=== PATIENT | male | born 1945 | race Asian ===

== ENCOUNTER 2016-02-05 10:01 | Inpatient (IN) | payer OTHER ==
[~2016-02-05 10:01] MED LIST: ASCO500T18 PO; CLOP75TA2 PO; CYAN10009 IM; DOCU100C10 PO; DONE5TAB PO; EQ ASPIRIN325 MG PO; IRON325 MG PO; METO50TA27 PO; MULTI VITAMN PO; NAMENDA XR28 MG PO; NITROSTAT0.4 MG SL; PRAVACHOL80 MG PO; PROTEINEX PO; RISP1TAB PO; SENNA-S1 TAB PO; SPIR25TA66 PO; TRAM50TA PO; TYLENOL325 MG PO; VITAMIN D400 UNI1 PO; ZANTAC300 MG PO
== END 2016-03-07 08:00 | disposition still patient (30) ==
LOC: PAVC 10:01
PROVIDERS: ADMIT Internal Medicine
DX: Z51.89 Encounter for other specified aftercare (principal)

== ENCOUNTER 2016-03-07 09:00 | Inpatient (IN) | payer OTHER | END 2016-04-07 13:11 | disposition still patient (30) | LOC: PAVC 09:00 | PROVIDERS: ADMIT Internal Medicine | DX: Z51.89 Encounter for other specified aftercare (principal) ==

== ENCOUNTER 2016-04-07 13:20 | Inpatient (IN) | payer OTHER | END 2016-05-05 13:24 | disposition still patient (30) | LOC: PAVC 13:20 | PROVIDERS: ADMIT Internal Medicine | DX: Z51.89 Encounter for other specified aftercare (principal) ==

== ENCOUNTER 2016-04-14 22:41 | Emergency (ER) | payer OTHER ==
[~2016-04-14] VITALS: Ht 185.4 cm; Wt 93.0 kg
[2016-04-14 22:51] VITALS: BP 101/56; TEMP 98.6
== END 2016-04-14 23:00 | disposition home or self-care (01) ==
LOC: ED 22:41
DX: S00.83XA Contusion of other part of head, initial encounter (principal); W07.XXXA Fall from chair, initial encounter; Y92.128 Other place in nursing home as the place of occurrence of the external cause
CPT/HCPCS: 99281

== ENCOUNTER 2016-04-14 23:12 | Outpatient (CLI) | payer OTHER | END 2016-04-14 23:55 | disposition home or self-care (01) | LOC: RAD 23:12 | DX: S00.83XA Contusion of other part of head, initial encounter (principal) ==

== ENCOUNTER 2016-05-05 13:55 | Inpatient (IN) | payer OTHER | END 2016-06-05 08:16 | disposition still patient (30) | LOC: PAVC 13:55 | PROVIDERS: ADMIT Internal Medicine | DX: Z51.89 Encounter for other specified aftercare (principal) ==

== ENCOUNTER 2016-06-05 08:26 | Inpatient (IN) | payer OTHER | END 2016-07-05 11:01 | disposition still patient (30) | LOC: PAVC 08:26 | PROVIDERS: ADMIT Internal Medicine | DX: Z51.89 Encounter for other specified aftercare (principal) ==

== ENCOUNTER 2016-06-11 02:58 | Outpatient (CLI) | payer OTHER ==
[2016-06-11 04:08] LABS: PLATELET COUNT 172 K/uL (142-355)
[2016-06-11 04:24] LABS: POTASSIUM 3.7 mmol/L (3.6-5.2)
== END 2016-06-11 19:04 | disposition home or self-care (01) ==
LOC: LAB 02:58
PROVIDERS: Internal Medicine
DX: I10 Essential (primary) hypertension (principal); K21.9 Gastro-esophageal reflux disease without esophagitis; D64.89 Other specified anemias; R79.89 Other specified abnormal findings of blood chemistry
CPT/HCPCS: 80053; 82607; 83540; 85027

== ENCOUNTER 2016-07-02 15:25 | Outpatient (CLI) | payer OTHER | END 2016-07-02 19:13 | disposition home or self-care (01) | LOC: LAB 15:25 | DX: Z16.24 Resistance to multiple antibiotics (principal) | CPT/HCPCS: 87081 ==

== ENCOUNTER 2016-07-05 11:10 | Inpatient (IN) | payer OTHER | END 2016-08-05 11:13 | disposition still patient (30) | LOC: PAVC 11:10 | PROVIDERS: ADMIT Internal Medicine | DX: Z51.89 Encounter for other specified aftercare (principal) ==

== ENCOUNTER 2016-07-21 03:32 | Outpatient (CLI) | payer OTHER | END 2016-07-21 19:23 | disposition home or self-care (01) | LOC: LAB 03:32 | DX: E55.9 Vitamin D deficiency, unspecified (principal) | CPT/HCPCS: 36415; 82306; 82310 ==

== ENCOUNTER 2016-08-05 11:21 | Inpatient (IN) | payer OTHER | END 2016-09-04 16:13 | disposition still patient (30) | LOC: PAVC 11:21 | PROVIDERS: ADMIT Internal Medicine | DX: Z51.89 Encounter for other specified aftercare (principal) ==

== ENCOUNTER 2016-09-04 16:13 | Inpatient (IN) | payer OTHER | END 2016-10-05 13:04 | disposition still patient (30) | LOC: PAVC 16:13 | PROVIDERS: ADMIT Internal Medicine | DX: Z51.89 Encounter for other specified aftercare (principal) ==

== ENCOUNTER 2016-09-06 03:22 | Outpatient (CLI) | payer OTHER ==
[2016-09-06 04:24] LABS: POTASSIUM 3.6 mmol/L (3.6-5.2)
== END 2016-09-06 04:25 | disposition home or self-care (01) ==
LOC: LAB 03:22
PROVIDERS: Internal Medicine
DX: I63.50 Cerebral infarction due to unspecified occlusion or stenosis of unspecified cerebral artery (principal); F02.81 Dementia in other diseases classified elsewhere, unspecified severity, with behavioral disturbance; I10 Essential (primary) hypertension
CPT/HCPCS: 36415; 80048

== ENCOUNTER 2016-10-04 04:13 | Outpatient (CLI) | payer OTHER | END 2016-10-04 05:15 | disposition home or self-care (01) | LOC: LAB 04:13 | PROVIDERS: Internal Medicine | DX: E78.4 Other hyperlipidemia (principal) | CPT/HCPCS: 36415; 80061 ==

== ENCOUNTER 2016-10-05 14:29 | Inpatient (IN) | payer OTHER | END 2016-11-05 10:03 | disposition still patient (30) | LOC: PAVC 14:29 | PROVIDERS: ADMIT Internal Medicine | DX: Z51.89 Encounter for other specified aftercare (principal) ==

== ENCOUNTER 2016-11-05 10:09 | Inpatient (IN) | payer OTHER | END 2016-12-05 09:40 | disposition still patient (30) | LOC: PAVC 10:09 | PROVIDERS: ADMIT Internal Medicine | DX: Z51.89 Encounter for other specified aftercare (principal) ==

== ENCOUNTER 2016-12-05 09:47 | Inpatient (IN) | payer OTHER | END 2017-01-05 14:23 | disposition still patient (30) | LOC: PAVC 09:47 | PROVIDERS: ADMIT Internal Medicine ==

== ENCOUNTER 2016-12-17 04:24 | Outpatient (CLI) | payer OTHER ==
[2016-12-17 05:48] LABS: PLATELET COUNT 158 K/uL (142-355)
[2016-12-17 06:02] LABS: POTASSIUM 3.9 mmol/L (3.6-5.2)
== END 2016-12-17 05:25 | disposition home or self-care (01) ==
LOC: LAB 04:24
PROVIDERS: Internal Medicine
DX: I10 Essential (primary) hypertension (principal); D64.9 Anemia, unspecified
CPT/HCPCS: 80053; 82607; 83540; 85027

== ENCOUNTER 2017-01-05 15:32 | Inpatient (IN) | payer OTHER | END 2017-02-04 10:34 | disposition still patient (30) | LOC: PAVC 15:32 | PROVIDERS: ADMIT Internal Medicine ==

== ENCOUNTER 2017-02-04 11:12 | Inpatient (IN) | payer OTHER | END 2017-03-07 11:19 | disposition still patient (30) | LOC: PAVC 11:12 | PROVIDERS: ADMIT Internal Medicine ==

== ENCOUNTER 2017-03-07 11:29 | Inpatient (IN) | payer OTHER | END 2017-04-07 11:16 | disposition still patient (30) | LOC: PAVC 11:29 | PROVIDERS: ADMIT Internal Medicine ==

== ENCOUNTER 2017-03-11 01:32 | Outpatient (CLI) | payer OTHER ==
[2017-03-11 04:16] LABS: POTASSIUM 4.1 mmol/L (3.6-5.2)
== END 2017-03-12 05:15 | disposition home or self-care (01) ==
LOC: LAB 01:32
PROVIDERS: Internal Medicine
DX: I63.50 Cerebral infarction due to unspecified occlusion or stenosis of unspecified cerebral artery (principal); I10 Essential (primary) hypertension; F02.81 Dementia in other diseases classified elsewhere, unspecified severity, with behavioral disturbance
CPT/HCPCS: 80048

== ENCOUNTER 2017-04-07 11:17 | Inpatient (IN) | payer OTHER | END 2017-05-05 10:42 | disposition still patient (30) | LOC: PAVC 11:17 | PROVIDERS: ADMIT Internal Medicine ==

== ENCOUNTER 2017-05-05 11:15 | Inpatient (IN) | payer OTHER | END 2017-06-05 08:00 | disposition still patient (30) | LOC: PAVC 11:15 | PROVIDERS: ADMIT Internal Medicine ==

== ENCOUNTER 2017-06-05 09:00 | Inpatient (IN) | payer OTHER | END 2017-07-05 10:35 | disposition still patient (30) | LOC: PAVC 09:00 | PROVIDERS: ADMIT Internal Medicine ==

== ENCOUNTER 2017-06-08 04:49 | Outpatient (CLI) | payer OTHER ==
[2017-06-08 05:26] LABS: PLATELET COUNT 134 K/uL (142-355)
[2017-06-08 05:49] LABS: POTASSIUM 3.6 mmol/L (3.6-5.2)
== END 2017-06-08 22:24 | disposition home or self-care (01) ==
LOC: LAB 04:49
PROVIDERS: Internal Medicine
DX: D64.89 Other specified anemias (principal); E55.9 Vitamin D deficiency, unspecified
CPT/HCPCS: 80053; 82306; 82607; 85027

== ENCOUNTER 2017-07-05 11:11 | Inpatient (IN) | payer OTHER | END 2017-08-05 10:28 | disposition still patient (30) | LOC: PAVC 11:11 | PROVIDERS: ADMIT Internal Medicine ==

== ENCOUNTER 2017-08-05 10:35 | Inpatient (IN) | payer OTHER | END 2017-09-04 15:08 | disposition still patient (30) | LOC: PAVC 10:35 | PROVIDERS: ADMIT Internal Medicine ==

== ENCOUNTER 2017-09-04 15:16 | Inpatient (IN) | payer OTHER | END 2017-10-05 08:00 | disposition still patient (30) | LOC: PAVC 15:16 | PROVIDERS: ADMIT Internal Medicine ==

== ENCOUNTER 2017-09-09 06:05 | Outpatient (CLI) | payer OTHER ==
[2017-09-09 08:01] LABS: POTASSIUM 3.7 mmol/L (3.6-5.2)
== END 2017-09-09 19:03 | disposition home or self-care (01) ==
LOC: LAB 06:05
PROVIDERS: Internal Medicine
DX: R79.89 Other specified abnormal findings of blood chemistry (principal)
CPT/HCPCS: 80048

== ENCOUNTER 2017-10-05 09:00 | Inpatient (IN) | payer OTHER | END 2017-11-05 11:15 | disposition still patient (30) | LOC: PAVC 09:00 | PROVIDERS: ADMIT Internal Medicine ==

== ENCOUNTER 2017-11-05 11:15 | Inpatient (IN) | payer OTHER | END 2017-12-05 15:08 | disposition still patient (30) | LOC: PAVC 11:15 | PROVIDERS: ADMIT Internal Medicine ==

== ENCOUNTER 2017-12-05 16:21 | Inpatient (IN) | payer OTHER | END 2018-01-05 10:43 | disposition still patient (30) | LOC: PAVC 16:21 | PROVIDERS: ADMIT Internal Medicine ==

== ENCOUNTER 2017-12-13 03:29 | Outpatient (CLI) | payer OTHER ==
[2017-12-13 04:20] LABS: PLATELET COUNT 126 K/uL (142-355)
[2017-12-13 04:26] LABS: POTASSIUM 3.7 mmol/L (3.6-5.2)
== END 2017-12-13 22:36 | disposition home or self-care (01) ==
LOC: LAB 03:29
PROVIDERS: Internal Medicine
DX: D64.9 Anemia, unspecified (principal); D51.9 Vitamin B12 deficiency anemia, unspecified; I69.351 Hemiplegia and hemiparesis following cerebral infarction affecting right dominant side
CPT/HCPCS: 80053; 82607; 83540; 85027

== ENCOUNTER 2018-01-05 10:56 | Inpatient (IN) | payer OTHER | END 2018-02-04 07:09 | disposition still patient (30) | LOC: PAVC 10:56 | PROVIDERS: ADMIT Internal Medicine ==

== ENCOUNTER 2018-02-04 07:10 | Inpatient (IN) | payer OTHER | END 2018-03-07 09:41 | disposition still patient (30) | LOC: PAVC 07:10 | PROVIDERS: ADMIT Internal Medicine ==

== ENCOUNTER → 2018-03-06 | Outpatient (CLI) | payer OTHER | END | disposition home or self-care (01) | LOC: RAD 20:49 | DX: S09.90XA Unspecified injury of head, initial encounter (principal); W19.XXXA Unspecified fall, initial encounter ==

== ENCOUNTER 2018-03-07 10:17 | Inpatient (IN) | payer OTHER | END 2018-04-07 08:42 | disposition still patient (30) | LOC: PAVC 10:17 | PROVIDERS: ADMIT Internal Medicine ==

== ENCOUNTER 2018-04-07 09:32 | Inpatient (IN) | payer OTHER | END 2018-05-05 13:54 | disposition still patient (30) | LOC: PAVC 09:32 | PROVIDERS: ADMIT Internal Medicine ==

== ENCOUNTER 2018-05-05 14:10 | Inpatient (IN) | payer OTHER | END 2018-06-05 13:06 | disposition still patient (30) | LOC: PAVC 14:10 | PROVIDERS: ADMIT Internal Medicine ==

== ENCOUNTER 2018-06-05 13:15 | Inpatient (IN) | payer OTHER | END 2018-07-05 15:57 | disposition still patient (30) | LOC: PAVC 13:15 | PROVIDERS: ADMIT Internal Medicine ==

== ENCOUNTER 2018-06-12 04:09 | Outpatient (CLI) | payer OTHER ==
[2018-06-12 05:15] LABS: PLATELET COUNT 151 K/uL (142-355)
[2018-06-12 05:39] LABS: POTASSIUM 3.6 mmol/L (3.6-5.2)
== END 2018-06-12 22:52 | disposition home or self-care (01) ==
LOC: LAB 04:09
PROVIDERS: Internal Medicine
DX: I49.9 Cardiac arrhythmia, unspecified (principal); F03.90 Unspecified dementia, unspecified severity, without behavioral disturbance, psychotic disturbance, mood disturbance, and anxiety
CPT/HCPCS: 36415; 80053; 82306; 82607; 85027

== ENCOUNTER 2018-06-19 21:07 | Outpatient (CLI) | payer OTHER | END 2018-06-19 23:00 | disposition home or self-care (01) | LOC: LAB 21:07 | DX: Z12.5 Encounter for screening for malignant neoplasm of prostate (principal) | CPT/HCPCS: 36415; 84153 ==

== ENCOUNTER 2018-07-05 16:41 | Inpatient (IN) | payer OTHER | END 2018-08-05 09:43 | disposition still patient (30) | LOC: PAVC 16:41 | PROVIDERS: ADMIT Internal Medicine | DX: Z51.89 Encounter for other specified aftercare (principal) ==

== ENCOUNTER 2018-08-05 09:44 | Inpatient (IN) | payer OTHER | END 2018-09-04 13:51 | disposition still patient (30) | LOC: PAVC 09:44 | PROVIDERS: ADMIT Internal Medicine ==

== ENCOUNTER 2018-09-04 14:09 | Inpatient (IN) | payer OTHER | END 2018-10-05 12:35 | disposition still patient (30) | LOC: PAVC 14:09 | PROVIDERS: ADMIT Internal Medicine ==

== ENCOUNTER 2018-09-12 04:11 | Outpatient (CLI) | payer OTHER ==
[2018-09-12 06:51] LABS: POTASSIUM 3.4 mmol/L (3.6-5.2)
== END 2018-09-12 19:57 | disposition home or self-care (01) ==
LOC: LAB 04:11
PROVIDERS: Internal Medicine
DX: R79.89 Other specified abnormal findings of blood chemistry (principal); E78.49 Other hyperlipidemia
CPT/HCPCS: 36415; 80048; 80061

== ENCOUNTER 2018-10-05 12:54 | Inpatient (IN) | payer OTHER | END 2018-11-05 17:20 | disposition still patient (30) | LOC: PAVC 12:54 | PROVIDERS: ADMIT Internal Medicine ==

== ENCOUNTER 2018-11-05 17:28 | Inpatient (IN) | payer OTHER | END 2018-12-05 13:01 | disposition still patient (30) | LOC: PAVC 17:28 | PROVIDERS: ADMIT Internal Medicine ==

== ENCOUNTER 2018-12-05 13:15 | Inpatient (IN) | payer OTHER | END 2019-01-05 12:20 | disposition still patient (30) | LOC: PAVC 13:15 | PROVIDERS: ADMIT Internal Medicine ==

== ENCOUNTER 2018-12-11 05:52 | Outpatient (CLI) | payer OTHER ==
[2018-12-11 06:24] LABS: PLATELET COUNT 145 K/uL (142-355); POTASSIUM 3.8 mmol/L (3.6-5.2)
== END 2018-12-11 22:15 | disposition home or self-care (01) ==
LOC: LAB 05:52
PROVIDERS: Internal Medicine
DX: E55.9 Vitamin D deficiency, unspecified (principal); D51.8 Other vitamin B12 deficiency anemias; R68.89 Other general symptoms and signs; R79.89 Other specified abnormal findings of blood chemistry
CPT/HCPCS: 80053; 82306; 82607; 83540; 85027

== ENCOUNTER 2019-01-05 14:03 | Inpatient (IN) | payer OTHER | END 2019-02-04 08:00 | disposition still patient (30) | LOC: PAVC 14:03 | PROVIDERS: ADMIT Internal Medicine ==

== ENCOUNTER 2019-02-04 11:00 | Inpatient (IN) | payer OTHER | END 2019-03-07 09:33 | disposition still patient (30) | LOC: PAVC 11:00 | PROVIDERS: ADMIT Internal Medicine ==

== ENCOUNTER 2019-03-07 09:42 | Inpatient (IN) | payer OTHER | END 2019-04-07 10:48 | disposition still patient (30) | LOC: PAVC 09:42 | PROVIDERS: ADMIT Internal Medicine ==

== ENCOUNTER 2019-03-12 05:29 | Outpatient (CLI) | payer OTHER ==
[2019-03-12 06:17] LABS: POTASSIUM 3.6 mmol/L (3.6-5.2)
== END 2019-03-12 22:30 | disposition home or self-care (01) ==
LOC: LAB 05:29
PROVIDERS: Internal Medicine
DX: N18.9 Chronic kidney disease, unspecified (principal); E78.49 Other hyperlipidemia
CPT/HCPCS: 80048

== ENCOUNTER 2019-04-07 10:59 | Inpatient (IN) | payer OTHER ==
--- NOTE | 2019-04-30 13:00 | NUR ---
Patients GG completed.
== END 2019-05-06 14:14 | disposition still patient (30) ==
LOC: PAVC 10:59
PROVIDERS: ADMIT Internal Medicine

== ENCOUNTER 2019-05-06 14:15 | Inpatient (IN) | payer OTHER | END 2019-06-06 11:52 | disposition still patient (30) | LOC: PAVC 14:15 | PROVIDERS: ADMIT Internal Medicine ==

== ENCOUNTER 2019-06-06 12:30 | Inpatient (IN) | payer OTHER | END 2019-07-06 11:25 | disposition still patient (30) | LOC: PAVC 12:30 | PROVIDERS: ADMIT Internal Medicine ==

== ENCOUNTER 2019-07-03 09:54 | Outpatient (CLI) | payer OTHER | END 2019-07-03 19:25 | disposition home or self-care (01) | LOC: RAD 09:54 | DX: U07.1 COVID-19 (principal); R09.02 Hypoxemia | CPT/HCPCS: 87635; U0002 ==

== ENCOUNTER 2019-07-03 19:41 | Emergency (ER) | payer OTHER ==
[~2019-07-03] VITALS: Ht 188 cm; Wt 93.2 kg
[2019-07-03 21:11] LABS: POTASSIUM 3.9 mmol/L (3.6-5.2)
[2019-07-03 21:48] LABS: PLATELET COUNT 99 K/uL (142-355)
[2019-07-03 22:15] VITALS: TEMP 103.1
[2019-07-03 22:30] VITALS: BP 95/72
== END 2019-07-03 23:02 | disposition short-term general hospital (02) ==
LOC: ED 19:49
PROVIDERS: Family Medicine
PROC: 0T9B70Z Drainage of Bladder with Drainage Device, Via Natural or Artificial Opening (ICD-10-PCS; principal; 2019-07-03)
DX: R06.03 Acute respiratory distress (principal); J18.9 Pneumonia, unspecified organism; N18.9 Chronic kidney disease, unspecified; Z79.899 Other long term (current) drug therapy; Z51.81 Encounter for therapeutic drug level monitoring
CPT/HCPCS: 36415; 36600; 51702; 80053; 81000; 82550; 82553; 82805; 83605; 84484; 85027; 87040; 87088; 93005; 96360; 96365; 96375; 99285; J0696; J1885; J2930